=== PATIENT | male | born 1950 | race Caucasian/White ===

== ENCOUNTER 2016-04-19 05:22 | Day surgery (SDC) | payer BC ==
[~2016-04-19] VITALS: Ht 180.3 cm; Wt 99.2 kg
[2016-04-19] VITALS (7 sets, daily range): BP systolic 130–151; BP diastolic 79–88; PULSE 76–91; TEMP 98
[2016-04-19] MEDS ORDERED: ZOCOR 40MG40 MG PO (06:33)
[2016-04-19] MEDS ORDERED: GLUCOPHAGE1000 MG PO (06:34)
[2016-04-19] MEDS ORDERED: GLUCOTROL10 MG PO (06:35)
[2016-04-19] MEDS ORDERED: ZESTRIL 5MG5 MG PO (06:35)
[2016-04-19] MEDS ORDERED: ASPIRIN 32325 MG/TAB PO (06:36)
[2016-04-19] MEDS ORDERED: NORCO 325 MG-7.1 TAB PO (10:19)
== END 2016-04-19 12:55 | disposition home or self-care (01) ==
LOC: SDCO 05:22
DX: K42.0 Umbilical hernia with obstruction, without gangrene (principal); E11.9 Type 2 diabetes mellitus without complications; Z79.84 Long term (current) use of oral hypoglycemic drugs; E78.5 Hyperlipidemia, unspecified; I10 Essential (primary) hypertension; Z86.718 Personal history of other venous thrombosis and embolism
CPT/HCPCS: C1713; C1781; J0360; J2270; J2370; J2405; J2704; J2765; J7030

== ENCOUNTER → 2016-04-21 | Outpatient (CLI) | payer BC ==
[~2016-04-21] MED LIST: ASPIRIN 32325 MG/TAB PO; GLUCOPHAGE1000 MG PO; GLUCOTROL10 MG PO; NORCO 325 MG-7.1 TAB PO; ZESTRIL 5MG5 MG PO; ZOCOR 40MG40 MG PO
[2016-04-21 15:45] LABS: HEMATOCRIT 48.9 % (42.0-52.0); HEMOGLOBIN 17.1 g/dl (13.5-18.0); MEAN CELL VOLUME 90 fl (80.0-100.0); MEAN CORPUSCULAR HEMOGLOBIN 31 pg (27.0-31.0); MEAN CORPUSCULAR HGB CONC 35 g/dl (33.0-37.0); MEAN PLATELET VOLUME 9.8 fl (7.4-10.4); PLATELET COUNT 183 K/mm3 (130-400); RED BLOOD COUNT 5.45 M/mm3 (4.20-5.60); REDCELL DISTRIBUTION WIDTH-CV 13.3 % (11.5-14.5); WHITE BLOOD COUNT 7.6 K/mm3 (4.8-10.8)
[2016-04-21 16:03] LABS: CALCIUM 10.1 mg/dL (8.4-10.2); CREATININE, serum 1.01 mg/dL (0.66-1.25); PHOSPHOROUS 2.9 mg/dL (2.5-4.5); POTASSIUM 4.4 mmol/L (3.4-5.0)
== END ==
LOC: COL.RAD 14:56
PROVIDERS: Surgery
DX: R11.2 Nausea with vomiting, unspecified (principal)
CPT/HCPCS: Q9967

== ENCOUNTER → 2017-06-13 | Outpatient (CLI) | payer BC | LOC: COL.RAD 06-11 10:15 | DX: M16.11 Unilateral primary osteoarthritis, right hip (principal) | CPT/HCPCS: J3301; Q9967 ==

== ENCOUNTER 2018-02-12 19:04 | Inpatient (IN) | payer BC, OTHER ==
[~2018-02-12] VITALS: Ht 177.8 cm; Wt 81.3 kg
[2018-02-12] VITALS (105 sets, daily range): BP systolic 107; BP diastolic 65; PULSE 73; TEMP 97.9; O2SAT 89–100
[2018-02-12] MEDS ORDERED: PRINIVIL5 MG PO (19:23)
[2018-02-12] MEDS ORDERED: ASPIRIN 81M81 MG/TA2 PO (19:24)
[2018-02-12] MEDS ORDERED: OZEMPIC0.25 MG/0. SQ (19:26)
[2018-02-12 19:48] LABS: BASO % 0.4 % (0.0-2.0); EOS # 0.2 (0.0-0.7); EOS % 2.6 % (0-4.0); GRAN % 63.6 % (42.2-75.2); HEMATOCRIT 43.6 % (42.0-52.0); LYMPH # 1.8 (1.2-3.4); LYMPH % 23.3 % (20.0-51.0); MEAN CELL VOLUME 91 fl (80.0-100.0); MEAN CORPUSCULAR HEMOGLOBIN 31 pg (27.0-31.0); MEAN CORPUSCULAR HGB CONC 34 g/dl (33.0-37.0); MONO # 0.8 (0.1-0.6); MONO % 9.6 % (1.7-9.3); PLATELET COUNT 156 K/mm3 (130-400); RED BLOOD COUNT 4.79 M/mm3 (4.20-5.60); REDCELL DISTRIBUTION WIDTH-CV 13.4 % (11.5-14.5)
[2018-02-12 19:52] LABS: INR 1.1 (0.8-3.0); PROTHROMBIN TIME 12.8 SECONDS (9.7-12.8)
[2018-02-12 19:57] LABS: ALBUMIN 3.8 gm/dL (3.5-5.0); BILIRUBIN,TOTAL 1.2 mg/dL (0.0-1.0); CALCIUM 10.1 mg/dL (8.4-10.2); CREATININE, serum 0.97 mg/dL (0.66-1.25); POTASSIUM 4.5 mmol/L (3.4-5.0); TOTAL PROTEIN 6.6 gm/dL (6.4-8.2)
[2018-02-12 20:20] LABS: TROPONIN-I 0.397 ng/mL (0.000-0.034)
[2018-02-13] VITALS (235 sets, daily range): BP systolic 102–148; BP diastolic 65–98; PULSE 70–87; TEMP 97.9–98.7; O2SAT 93–99
[2018-02-13 02:53] LABS: BASO % 0.5 % (0.0-2.0); EOS # 0.3 (0.0-0.7); EOS % 3.6 % (0-4.0); GRAN # 4.5 (1.4-6.5); GRAN % 54.9 % (42.2-75.2); HEMATOCRIT 43.9 % (42.0-52.0); HEMOGLOBIN 15.3 g/dl (13.5-18.0); LYMPH # 2.6 (1.2-3.4); LYMPH % 31.7 % (20.0-51.0); MEAN CELL VOLUME 91 fl (80.0-100.0); MEAN CORPUSCULAR HEMOGLOBIN 32 pg (27.0-31.0); MEAN CORPUSCULAR HGB CONC 35 g/dl (33.0-37.0); MONO # 0.7 (0.1-0.6); MONO % 9.1 % (1.7-9.3); PLATELET COUNT 163 K/mm3 (130-400); RED BLOOD COUNT 4.81 M/mm3 (4.20-5.60); REDCELL DISTRIBUTION WIDTH-CV 13.4 % (11.5-14.5)
[2018-02-13 03:03] LABS: CALCIUM 10.1 mg/dL (8.4-10.2); CREATININE, serum 0.97 mg/dL (0.66-1.25); POTASSIUM 4.8 mmol/L (3.4-5.0)
[2018-02-13 03:20] LABS: TROPONIN-I 6 HR POST INITIAL 0.552 ng/mL (0.000-0.034)
[2018-02-14] VITALS (29 sets, daily range): BP systolic 101–107; BP diastolic 66–70; PULSE 85–97; TEMP 98–98.8; O2SAT 95–98
[2018-02-14 05:43] LABS: BASO % 0.4 % (0.0-2.0); EOS # 0.2 (0.0-0.7); GRAN % 70.3 % (42.2-75.2); HEMATOCRIT 46.1 % (42.0-52.0); HEMOGLOBIN 16.2 g/dl (13.5-18.0); LYMPH # 1.8 (1.2-3.4); LYMPH % 18.1 % (20.0-51.0); MEAN CELL VOLUME 90 fl (80.0-100.0); MEAN CORPUSCULAR HEMOGLOBIN 32 pg (27.0-31.0); MEAN CORPUSCULAR HGB CONC 35 g/dl (33.0-37.0); MONO # 0.9 (0.1-0.6); MONO % 8.8 % (1.7-9.3); PLATELET COUNT 159 K/mm3 (130-400); RED BLOOD COUNT 5.15 M/mm3 (4.20-5.60); REDCELL DISTRIBUTION WIDTH-CV 13.3 % (11.5-14.5)
[2018-02-14 05:57] LABS: CALCIUM 9.6 mg/dL (8.4-10.2); CREATININE, serum 0.82 mg/dL (0.66-1.25); POTASSIUM 4.5 mmol/L (3.4-5.0)
[2018-02-14] MEDS ORDERED: TOPROL XL 25MG25 MG PO (09:36)
[2018-02-14] MEDS ORDERED: NITROSTAT0.4 MG/TAB SL (09:36)
[2018-02-14] MEDS ORDERED: BRILINTA90 MG PO (09:36)
== END 2018-02-14 10:40 | disposition home or self-care (01) | DRG 247 ==
LOC: COL.ER 19:04 → ICU 20:20
PROVIDERS: Emergency Medicine; Nurse Practitioner
PROC: B2111ZZ Fluoroscopy of Multiple Coronary Arteries using Low Osmolar Contrast (ICD-10-PCS; principal; 2018-02-13)
PROC: 027034Z Dilation of Coronary Artery, One Artery with Drug-eluting Intraluminal Device, Percutaneous Approach (ICD-10-PCS; 2018-02-13)
DX: I21.4 Non-ST elevation (NSTEMI) myocardial infarction (principal); E78.5 Hyperlipidemia, unspecified; E11.9 Type 2 diabetes mellitus without complications; I25.10 Atherosclerotic heart disease of native coronary artery without angina pectoris
CPT/HCPCS: 99223-AI; 99239; C1725; C1760; C1769; C1887; C1894; C9600; J0583; J1644; J1815; J2250; J3010; Q9967

== ENCOUNTER 2018-04-10 14:33 | Outpatient (RCR) | payer BC, OTHER ==
[~2018-04-10 14:33] MED LIST changes: +ASPIRIN 81M81 MG/TA2 PO; +BRILINTA90 MG PO; +NITROSTAT0.4 MG/TAB SL; +OZEMPIC0.25 MG/0. SQ; +PRINIVIL5 MG PO; +TOPROL XL 25MG25 MG PO
== END 2018-04-12 14:47 | disposition home or self-care (01) ==
LOC: COL.CR 14:33
DX: Z48.812 Encounter for surgical aftercare following surgery on the circulatory system (principal); Z95.5 Presence of coronary angioplasty implant and graft

== ENCOUNTER 2018-07-12 09:37 | Emergency (ER) | payer BC, OTHER ==
[~2018-07-12] VITALS: Ht 177.8 cm; Wt 76.8 kg
[2018-07-12 09:59] LABS: BASO # 0.1 (0.0-0.2); BASO % 0.8 % (0.0-2.0); EOS # 0.7 (0.0-0.7); EOS % 10.4 % (0-4.0); GRAN # 3.6 (1.4-6.5); GRAN % 57.7 % (42.2-75.2); HEMATOCRIT 45.5 % (42.0-52.0); HEMOGLOBIN 15.4 g/dl (13.5-18.0); LYMPH # 1.4 (1.2-3.4); LYMPH % 21.8 % (20.0-51.0); MEAN CELL VOLUME 92 fl (80.0-100.0); MEAN CORPUSCULAR HEMOGLOBIN 31 pg (27.0-31.0); MEAN CORPUSCULAR HGB CONC 34 g/dl (33.0-37.0); MONO # 0.6 (0.1-0.6); PLATELET COUNT 173 K/mm3 (130-400); RED BLOOD COUNT 4.95 M/mm3 (4.20-5.60); REDCELL DISTRIBUTION WIDTH-CV 13.8 % (11.5-14.5)
[2018-07-12 10:04] LABS: INR 1.1 (0.8-3.0); PROTHROMBIN TIME 12.3 SECONDS (9.7-12.8)
[2018-07-12 10:06] LABS: PARTIAL THROMBOPLASTIN TIME 32.4 SECONDS (26.0-37.0)
[2018-07-12 10:07] LABS: ALANINE AMINOTRANSFERASE 19 U/L (21-72); ALBUMIN 4.5 gm/dL (3.5-5.0); ALKALINE PHOSPHATASE 84 U/L (50-136); ANION GAP 11 mmol/L (7-16); AST,SGOT 29 U/L (15-37); BILIRUBIN,TOTAL 0.8 mg/dL (0.0-1.0); BLOOD UREA NITROGEN 22 mg/dL (9-20); CARBON DIOXIDE 26 mmol/L (22-30); CHLORIDE 102 mmol/L (98-107); CREATININE, serum 0.91 (0.66-1.25); GLUCOSE 113 mg/dL (74-106); POTASSIUM 4.4 mmol/L (3.4-5.0); SODIUM 139 mmol/L (137-145); TOTAL PROTEIN 7.9 gm/dL (6.4-8.2)
[2018-07-12 10:20] LABS: TROPONIN-I < 0.012 ng/mL (0.000-0.035)
[2018-07-12 13:15] VITALS: BP 110/74; PULSE 70
== END 2018-07-12 13:15 | disposition home or self-care (01) ==
LOC: COL.ER 09:37
PROVIDERS: Emergency Medicine
DX: R07.89 Other chest pain (principal); I10 Essential (primary) hypertension; I25.10 Atherosclerotic heart disease of native coronary artery without angina pectoris; E11.9 Type 2 diabetes mellitus without complications; E78.5 Hyperlipidemia, unspecified; Z79.82 Long term (current) use of aspirin; Z79.84 Long term (current) use of oral hypoglycemic drugs

== ENCOUNTER 2019-11-04 07:55 | Inpatient (IN) | payer BC, OTHER ==
[~2019-11-04] VITALS: Ht 177.8 cm; Wt 78.7 kg
[2019-11-04] VITALS (204 sets, daily range): BP systolic 84–104; BP diastolic 58–65; PULSE 67–77; TEMP 97.7–98; O2SAT 88–99
[2019-11-04 08:41] LABS: BASO % 0.7 % (0.0-2.0); EOS # 0.5 (0.0-0.7); EOS % 8.2 % (0-4.0); GRAN # 3.3 (1.4-6.5); GRAN % 56.1 % (42.2-75.2); HEMATOCRIT 42.2 % (42.0-52.0); HEMOGLOBIN 14.4 g/dl (13.5-18.0); LYMPH # 1.4 (1.2-3.4); LYMPH % 24.6 % (20.0-51.0); MEAN CELL VOLUME 91 fl (80.0-100.0); MEAN CORPUSCULAR HEMOGLOBIN 31 pg (27.0-31.0); MEAN CORPUSCULAR HGB CONC 34 g/dl (33.0-37.0); MEAN PLATELET VOLUME 10.5 fl (7.4-10.4); MONO # 0.6 (0.1-0.6); MONO % 10.2 % (1.7-9.3); PLATELET COUNT 153 K/mm3 (130-400); RED BLOOD COUNT 4.65 M/mm3 (4.20-5.60); REDCELL DISTRIBUTION WIDTH-CV 14.3 % (11.5-14.5)
[2019-11-04 08:50] LABS: ALBUMIN 4.3 gm/dL (3.5-5.0); BILIRUBIN,TOTAL 1.2 mg/dL (0.0-1.0); CALCIUM 9.8 mg/dL (8.4-10.2); CREATININE, serum 1.05 (0.66-1.25); POTASSIUM 4.1 mmol/L (3.4-5.0); TOTAL PROTEIN 7.6 gm/dL (6.4-8.2)
[2019-11-04 09:00] LABS: INR 1.1 (0.8-3.0); PROTHROMBIN TIME 12.7 SECONDS (9.7-12.8)
[2019-11-04 09:02] LABS: PARTIAL THROMBOPLASTIN TIME 34.4 SECONDS (26.0-37.0)
[2019-11-04 09:05] LABS: TROPONIN-I 0.082 ng/mL (0.000-0.035)
[2019-11-04] MEDS ORDERED: CRESTOR20 MG PO (10:09)
--- NOTE | 2019-11-04 15:28 | NUR ---
SEE MERGE DOCUMENTATION FOR MEDICATION ADMINISTRATION AND INTRA/POST PROCEDURE SEDATION ASSESSMENTS.
--- NOTE | 2019-11-04 16:30 | NUR ---
Pt to express unit after heart cath, pending admission to ICU. Pt is awake and alert, pwd, with reg and unlabored resps, SR with occasional pvcs on monitor. VSS. TR band in place. 20g saline lock to lfa, angiomax infusing at 28ml/hr. plan for frequent monitoring, q15 min x 2 hours. Dinner ordered. call light in reach. warm blanket given.
--- NOTE | 2019-11-04 16:33 | NUR ---
Patient was admitted for chest pain, dizziness. he is alert and oriented. patient went for heart cath, blockage noted. patient is transferring to ICU after repair.
--- NOTE | 2019-11-04 17:00 | NUR ---
hematoma has developed just proximal to band, I increased volume in band by 1 cc, so band now has 16 cc air. cms remains intact distal. hematoma was massaged and it decreased in size easily, pressure held just proximal to band 5-10 minutes with resolution of hematoma and no further hematoma formation.
--- NOTE | 2019-11-04 17:45 | NUR ---
RT notified of post PCI EKG order
--- NOTE | 2019-11-04 17:50 | NUR ---
BS report given to Kofi VASQUES. Pt to ICu rm 2 via stretcher. no change in pt's status. Angiomax infusion was complete at 1706.
--- NOTE | 2019-11-04 18:00 | NUR ---
Pt arrived to ICU 2 at this time from , bedside report recieved from LAYO Arguelles - reported that at 1730 a hematoma to right radial access site developed, manual pressure was applied and hematoma reduced, 1mL of air added to TR Band. Pt AAOx4, tolerating PO liquids and excited for meal. Call light in reach, no complaints at this time
--- NOTE | 2019-11-04 19:00 | NUR ---
RT notified of post PCI EKG order
--- NOTE | 2019-11-04 21:07 | NUR ---
6 cc of air removed at TR band, now left with 10 cc of air. slight hematoma/lump noticed and was massage, now flat and no raised area. no bleeding noted at this time. will continue to monitor.
--- NOTE | 2019-11-04 21:36 | NUR ---
TR BAND LOOSENED BY 5 CC. 5 CC OF AIR STILL LEFT IN BAND. NO HEMATOMA NOTED. SITE SOFT AND PULSE PALPABLE AND STRONG. WILL CONTINUE MONITORING.
--- NOTE | 2019-11-04 22:06 | NUR ---
TR BAND LOOSENED BY 5 CC OF AIR AND NOW COMPLETELY OFF. SITE SOFT WITH NO HENATOMA NOTED. BAND AID APPLIED. PT DENIES ANY PAIN/DISCOMFORT AT THIS TIME.
[2019-11-05] VITALS (233 sets, daily range): BP systolic 103–117; BP diastolic 63–76; PULSE 62–87; TEMP 98–98.6; O2SAT 91–98
[2019-11-05 06:20] LABS: BASO % 0.5 % (0.0-2.0); EOS # 0.5 (0.0-0.7); EOS % 8.4 % (0-4.0); GRAN # 3.1 (1.4-6.5); GRAN % 54.6 % (42.2-75.2); HEMATOCRIT 42.1 % (42.0-52.0); HEMOGLOBIN 14.3 g/dl (13.5-18.0); LYMPH # 1.5 (1.2-3.4); MEAN CELL VOLUME 92 fl (80.0-100.0); MEAN CORPUSCULAR HEMOGLOBIN 31 pg (27.0-31.0); MEAN CORPUSCULAR HGB CONC 34 g/dl (33.0-37.0); MEAN PLATELET VOLUME 10.8 fl (7.4-10.4); MONO # 0.5 (0.1-0.6); MONO % 9.3 % (1.7-9.3); PLATELET COUNT 149 K/mm3 (130-400); RED BLOOD COUNT 4.59 M/mm3 (4.20-5.60); REDCELL DISTRIBUTION WIDTH-CV 14.3 % (11.5-14.5)
[2019-11-05 06:46] LABS: CALCIUM 9.6 mg/dL (8.4-10.2); CREATININE, serum 1.04 (0.66-1.25); POTASSIUM 4.2 mmol/L (3.4-5.0)
[2019-11-05] MEDS ORDERED: GLUCOPHAGE1000 MG PO (09:03)
--- NOTE | 2019-11-05 09:11 | NUR ---
KAYLA met with the patient to discuss discharge plan. The patient lives in [place] with his , Elisabeth (ph#[phone]). He reports independence with ADLs and does not have any DME. The patient's PCP is Dr. Johny Corrales and he receives his medications at [facility] in [place]. He reports no difficulties obtainining his meds. The patient does not have advanced directives, but he was interested in obtaining a form for DPOA-HC. KAYLA provided. The patient plans to return home with his upon discharge. No additional needs at this time.
== END 2019-11-05 10:05 | disposition home or self-care (01) | DRG 247 ==
LOC: COL.ER 07:55 → MEDICAL 09:29 → ICU 09:29
PROVIDERS: Family Medicine; ADMIT Hospitalist
PROC: 4A023N7 Measurement of Cardiac Sampling and Pressure, Left Heart, Percutaneous Approach (ICD-10-PCS; principal; 2019-11-04)
PROC: 027034Z Dilation of Coronary Artery, One Artery with Drug-eluting Intraluminal Device, Percutaneous Approach (ICD-10-PCS; 2019-11-04)
PROC: B2111ZZ Fluoroscopy of Multiple Coronary Arteries using Low Osmolar Contrast (ICD-10-PCS; 2019-11-04)
PROC: 3E033PZ Introduction of Platelet Inhibitor into Peripheral Vein, Percutaneous Approach (ICD-10-PCS; 2019-11-04)
DX: I21.4 Non-ST elevation (NSTEMI) myocardial infarction (principal); I25.10 Atherosclerotic heart disease of native coronary artery without angina pectoris; Z95.5 Presence of coronary angioplasty implant and graft; E11.9 Type 2 diabetes mellitus without complications; Z79.84 Long term (current) use of oral hypoglycemic drugs; E78.5 Hyperlipidemia, unspecified
CPT/HCPCS: 99239; C1769; C1874; C1887; C9600; J0583; J1644; J3010; Q9967

== ENCOUNTER 2020-02-03 12:42 | Observation (INO) | payer MEDICARE, BC, OTHER ==
[~2020-02-03] VITALS: Ht 177.8 cm; Wt 84.2 kg
[~2020-02-03 12:42] MED LIST changes: +CRESTOR20 MG PO
[2020-02-03 13:54] LABS: BASO # 0.1 (0.0-0.2); BASO % 0.9 % (0.0-2.0); EOS # 0.3 (0.0-0.7); EOS % 5.1 % (0-4.0); GRAN # 3.6 (1.4-6.5); GRAN % 62.3 % (42.2-75.2); HEMATOCRIT 44.3 % (42.0-52.0); LYMPH # 1.2 (1.2-3.4); LYMPH % 21.5 % (20.0-51.0); MEAN CELL VOLUME 93 fl (80.0-100.0); MEAN CORPUSCULAR HEMOGLOBIN 31 pg (27.0-31.0); MEAN CORPUSCULAR HGB CONC 34 g/dl (33.0-37.0); MEAN PLATELET VOLUME 10.6 fl (7.4-10.4); MONO # 0.6 (0.1-0.6); MONO % 9.8 % (1.7-9.3); PLATELET COUNT 168 K/mm3 (130-400); RED BLOOD COUNT 4.79 M/mm3 (4.20-5.60); REDCELL DISTRIBUTION WIDTH-CV 14.1 % (11.5-14.5)
[2020-02-03 13:58] LABS: INR 1.1 (0.8-3.0); PROTHROMBIN TIME 12.7 SECONDS (9.7-12.8)
[2020-02-03 14:00] LABS: ALANINE AMINOTRANSFERASE 20 U/L (4-49); ALBUMIN 4.9 gm/dL (3.5-5.0); ALKALINE PHOSPHATASE 78 U/L (50-136); ANION GAP 11 mmol/L (7-16); AST,SGOT 54 U/L (15-37); BILIRUBIN,TOTAL 0.9 mg/dL (0.0-1.0); BLOOD UREA NITROGEN 26 mg/dL (9-20); CALCIUM 9.9 mg/dL (8.4-10.2); CARBON DIOXIDE 25 mmol/L (22-30); CHLORIDE 102 mmol/L (98-107); CREATININE, serum 0.98 (0.66-1.25); GLUCOSE 155 mg/dL (74-106); POTASSIUM 4.2 mmol/L (3.4-5.0); SODIUM 138 mmol/L (137-145); TOTAL PROTEIN 8.3 gm/dL (6.4-8.2)
[2020-02-03 14:30] LABS: TROPONIN-I < 0.012 ng/mL (0.000-0.035)
[2020-02-03 18:13] VITALS: BP 93/61; PULSE 78
--- NOTE | 2020-02-03 21:00 | NUR ---
Patient arrived to floor from ER at approximately 2044. Alert and oriented x 4, and able to make needs known. Denies having pain and discomfort at this time. Peripheral IV to left AC with fluids running per orders. Denies SOB and dyspnea. LS CTA. Respirations even and unlabored. HRR. Telemetry: normal sinus. Capillary refill less than 3 seconds. Non-tenting skin turgor. BSAx4. Abdomen soft and non-tender. No edema. Voices no questions, needs, or concerns at this time. Aware that plan is do to a heart cath in the morning, and that he can not eat or drink anything after midnight. Resting in bed with call light within reach.
[2020-02-03 21:35] VITALS: BP 91/56; PULSE 74; TEMP 97.8
[2020-02-03 21:36] VITALS: BP 91/56; PULSE 80; TEMP 97.8
[2020-02-04] VITALS (11 sets, daily range): BP systolic 91–110; BP diastolic 57–72; PULSE 59–93; TEMP 97.4–98.2
--- NOTE | 2020-02-04 06:25 | NUR ---
Patient has denied having pain and discomfort this shift. Voices no questions, needs, or concerns this shift. Has been NPO since midnight for heart cath today. Resting in bed with call light within reach.
[2020-02-04 06:48] LABS: BASO % 0.7 % (0.0-2.0); EOS # 0.3 (0.0-0.7); EOS % 5.6 % (0-4.0); GRAN # 3.2 (1.4-6.5); GRAN % 58.1 % (42.2-75.2); HEMATOCRIT 39.3 % (42.0-52.0); HEMOGLOBIN 13.4 g/dl (13.5-18.0); LYMPH # 1.4 (1.2-3.4); LYMPH % 24.7 % (20.0-51.0); MEAN CELL VOLUME 91 fl (80.0-100.0); MEAN CORPUSCULAR HEMOGLOBIN 31 pg (27.0-31.0); MEAN CORPUSCULAR HGB CONC 34 g/dl (33.0-37.0); MEAN PLATELET VOLUME 10.7 fl (7.4-10.4); MONO # 0.6 (0.1-0.6); MONO % 10.5 % (1.7-9.3); PLATELET COUNT 147 K/mm3 (130-400)
[2020-02-04 07:03] LABS: CALCIUM 9.2 mg/dL (8.4-10.2); CREATININE, serum 0.9 (0.66-1.25); POTASSIUM 4.4 mmol/L (3.4-5.0)
[2020-02-04 07:20] LABS: TROPONIN-I 0.042 ng/mL (0.000-0.035)
--- NOTE | 2020-02-04 08:51 | NUR ---
Assessment as charted. Pt. resting in bed. Telemtry on. HR reg. Pt. denies c/o pain. INT site left forearm intact, no redness noted. Pt remains NPO status.
--- NOTE | 2020-02-04 09:25 | NUR ---
Pt assessment complete. Pt is sitting up in bed upon entry, he is A/O x4. His breathing is even and unlabored on RA. Pt denies SOB. No chest pain at this time. He denies palpitations. No nausea reported. IVF infusing into LAC without complications. POC discussed. Will continue to monitor.
--- NOTE | 2020-02-04 10:05 | NUR ---
Initial visit; Initial visit; Patient thanked Stiff [employer] Derrick Operator for stopping though declined spiritual care.
--- NOTE | 2020-02-04 10:25 | NUR ---
Pt left for heart cath at this time.
--- NOTE | 2020-02-04 10:56 | NUR ---
SEE MEREGE FOR ALL MEDICATION ADMIN. TIMES, INTRA AND POST SEDATION ASSESSMENT
[2020-02-04] MEDS ORDERED: GLUCOPHAGE1000 MG PO (12:40)
--- NOTE | 2020-02-04 14:35 | NUR ---
Attempted removing 5mls of air to TR band, bleeding occurred. Reinserted air to band, hemostasis achieved. Will attempt again in 30 minutes.
--- NOTE | 2020-02-04 15:38 | NUR ---
Discharge paperwork and instructions reviewed with patient. All questions answered at this time. IV to LAC dc'd, catheter intact. R radial band released, no bleeding or hematoma present. Wrapped with Koban per patients request. Pt walked out of facility at this time.
== END 2020-02-04 15:38 | disposition home or self-care (01) ==
LOC: COL.ER 12:42 → MEDICAL 14:42
PROVIDERS: Emergency Medicine; Physician Assistant; ADMIT Student in an Organized Health Care Education/Training Program
DX: I25.10 Atherosclerotic heart disease of native coronary artery without angina pectoris (principal); E11.9 Type 2 diabetes mellitus without complications; E78.5 Hyperlipidemia, unspecified; I95.9 Hypotension, unspecified; Z79.82 Long term (current) use of aspirin; I08.0 Rheumatic disorders of both mitral and aortic valves; Z79.84 Long term (current) use of oral hypoglycemic drugs
CPT/HCPCS: G0378; J1644; J2250; J2405; J3010; J7030

== ENCOUNTER 2022-05-03 12:19 | Emergency (ER) | payer MEDICARE, BC, OTHER ==
[~2022-05-03] VITALS: Ht 177.8 cm; Wt 72.7 kg
[2022-05-03 12:25] VITALS: TEMP 97.8
[2022-05-03 13:10] LABS: BASO # 0.1 K/mm3 (0.0-0.2); EOS # 0.4 K/mm3 (0.0-0.7); EOS % 7.1 % (0.0-4.0); GRAN # 3.8 K/mm3 (1.4-6.5); GRAN % 61.5 % (42.2-75.2); HEMATOCRIT 42.1 % (42.0-52.0); HEMOGLOBIN 14.6 g/dl (13.5-18.0); LYMPH # 1.3 K/mm3 (1.2-3.4); MEAN CELL VOLUME 92 fl (80.0-100.0); MEAN CORPUSCULAR HEMOGLOBIN 32 pg (27-31); MEAN CORPUSCULAR HGB CONC 35 g/dl (33.0-37.0); MEAN PLATELET VOLUME 10.8 fl (7.4-10.4); MONO # 0.6 K/mm3 (0.1-0.6); MONO % 8.8 % (1.7-9.3); PLATELET COUNT 149 K/mm3 (130-400); REDCELL DISTRIBUTION WIDTH-CV 14.2 % (11.5-14.5)
[2022-05-03 13:13] LABS: ALANINE AMINOTRANSFERASE 22 U/L (0-55); ALBUMIN 4.5 gm/dL (3.4-4.8); ALKALINE PHOSPHATASE 60 U/L (40-150); ANION GAP 10 mmol/L (7-16); AST,SGOT 29 U/L (5-34); BILIRUBIN,TOTAL 1.2 mg/dL (0.2-1.2); BLOOD UREA NITROGEN 25 mg/dL (8-26); CALCIUM 10.5 mg/dL (8.4-10.2); CARBON DIOXIDE 23 mmol/L (23-31); CHLORIDE 102 mmol/L (98-107); GLUCOSE 118 mg/dL (70-99); SODIUM 135 mmol/L (136-145); TOTAL PROTEIN 8.5 gm/dL (6.2-8.1)
[2022-05-03 13:21] LABS: TROPONIN-I < 0.010 ng/mL (0.00-0.033)
[2022-05-03 14:56] VITALS: BP 132/77; PULSE 76
== END 2022-05-03 15:25 | disposition home or self-care (01) ==
LOC: COL.ER 12:19
PROVIDERS: Physician Assistant
DX: R00.2 Palpitations (principal)